=== PATIENT | male | born 1940 | race Caucasian/White ===

== ENCOUNTER → 2019-10-15 | Outpatient (CLI) | payer OTHER, MEDICARE ==
[~2019-10-15] VITALS: Ht 182.9 cm; Wt 122.4 kg
[~2019-10-15] MED LIST: AEC81 PO; DUTA0.5C18 PO; DUTASTERIDE PO; INDO75CA3 PO; LOSA1TAB54 PO; LOSARTAN PO; TAMS-1 PO; VITA1TAB22 PO; WARF5TAB76 PO
[2019-10-15 15:49] VITALS: BP 136/85
[2019-10-15 15:53] LABS: EOSINOPHILS % (AUTO) 1.5 % (0.0-8.0); HEMATOCRIT 32.3 % (42-54); LYMPHOCYTES % (AUTO) 24.3 % (21.0-51.0); MEAN CORPUSCULAR HEMOGLOBIN 35.7 pg (27.0-33.0); MEAN CORPUSCULAR HGB CONC 32.5 g/dL (32.0-36.0); MEAN CORPUSCULAR VOLUME 109.9 fL (79-99); MONOCYTES % (AUTO) 8.4 % (3.0-13.0); NEUTROPHILS % (AUTO) 64.6 % (40.0-77.0); PLATELET COUNT (AUTO) 187 K/uL (130-400); RED BLOOD CELL COUNT(AUTO) 2.94 MIL/uL (4.50-6.20); RED CELL DISTRIBUTION WIDTH 13.6 % (11.0-15.5); WHITE BLOOD COUNT (AUTO) 8.1 K/uL (4.8-10.8)
[2019-10-15 16:05] LABS: CREATININE 1.2 mg/dL (0.5-1.5); POTASSIUM 3.8 mmol/L (3.5-5.1)
[2019-10-15 16:08] LABS: INR 0.99 (0.85-1.15); PARTIAL THROMBOPLASTIN TIME 27.7 SEC (26.3-35.5); PROTHROMBIN TIME 10.4 SEC (9.6-11.6)
--- NOTE | 2019-10-15 16:25 | NUR ---
RE: ABNORMAL EKG INFORMED DR BLACKMAN REGARDING ABNORMAL EKG, PER DR BLACKMAN, PATIENT NEEDS CARDIAC CLEARANCE. WILL SEND/FAX EKG TO DR SAGASTUME.
--- NOTE | 2019-10-15 17:28 | NUR ---
SENT EKG TO DR SAGASTUME. DR SAGASTUME REVIEWED EKG AND PER DR SAGASTUME, HE WILL NOT GIVE CARDIAC CLEARANCE FOR THE SURGERY WITH DR HU. PATIENT NEEDS TO BE SEEN IN DR LAWSON'S OFFICE ON SATURDAY.
--- NOTE | 2019-10-15 17:35 | NUR ---
CALLED PATIENT AND INFORMED HIM THAT SURGERY WAS BEING CANCELED DUE TO ABNORMAL EKG AND THAT DR SAGASTUME WANTS TO SEE HIM IN THE OFFICE ON SATURDAY. PATIENT VERBALIZED UNDERSTANDING.
== END | disposition home or self-care (01) ==
LOC: DAH 10:00 → EDSTATUS 11:00
PROVIDERS: ATTEND Neurological Surgery
DX: I45.10 Unspecified right bundle-branch block (principal); I25.2 Old myocardial infarction; I48.91 Unspecified atrial fibrillation; R00.0 Tachycardia, unspecified; G95.29 Other cord compression
CPT/HCPCS: 36415; 80048; 85025; 85610; 85730; 93005; A6260

== ENCOUNTER 2019-10-22 05:57 | Day surgery (SDC) | payer OTHER, MEDICARE ==
[2019-10-20 09:04] LABS: APPEARANCE,URINE Clear (CLEAR); BILIRUBIN,URINE Negative (NEGATIVE); COLOR,URINE Yellow (YELLOW); GLUCOSE, URINE (UA) Negative (NEGATIVE); KETONES,URINE Negative (NEGATIVE); LEUKOCYTE ESTERASE ,URINE Negative (NEGATIVE); NITRATE,URINE Negative (NEGATIVE); OCCULT BLOOD,URINE Negative (NEGATIVE); PH,URINE 5.5 (5.0-8.0); PROTEIN,URINE Trace mg/dL (NEGATIVE)
[2019-10-20 09:13] VITALS: BP 130/65
[2019-10-20 09:28] LABS: BACTERIA,URINE Rare /HPF (None Seen); RBC,URINE None Seen /HPF (0-1); SQUAMOUS EPITHELIAL CELL,UR None Seen /HPF (0-2); WBC,URINE 0-1 /HPF (0-1)
[2019-10-22] VITALS (13 sets, daily range): BP systolic 101–166; BP diastolic 66–101
[~2019-10-22] VITALS: Ht 177.8 cm; Wt 122.5 kg
[~2019-10-22 05:57] MED LIST changes: -DUTA0.5C18 PO; -LOSA1TAB54 PO; +SODIUM CHLORIDE 0.9% 500ML 500 ML IV SCH; -VITA1TAB22 PO; +WARF5TAB PO; -WARF5TAB76 PO
[2019-10-22] MEDS ORDERED: VITA1TAB22 PO (06:48)
[2019-10-22] MEDS ORDERED: DUTA0.5C18 PO (06:48)
[2019-10-22] MEDS ORDERED: LOSA1TAB54 PO (06:48)
[2019-10-22] MEDS ORDERED: SODIUM CHLORIDE 0.9% 1000ML 1,000 ML IV ONE (07:01)
[2019-10-22] MEDS ORDERED: IOHEXOL 350 MG/ML 100ML INFUS..BTL IV ONE (07:09)
[2019-10-22] MEDS ORDERED: NITROGLYCERIN 50 MG/D5% WATER 1 BOT ONE (07:09)
[2019-10-22] MEDS ORDERED: IOHEXOL-350 50ML VIAL IV ONE (07:09)
[2019-10-22] MEDS ORDERED: HEPARIN SODIUM 1000UNIT/ML 10ML VIAL ONE (07:09)
[2019-10-22] MEDS ORDERED: LIDOCAINE HCL 2% 20ML ONE (07:09)
[2019-10-22] MEDS ORDERED: DEXTROSE 50%-WATER 50 ML DISP.SYRIN IV PRN (08:15)
[2019-10-22] MEDS ORDERED: GLUCAGON 1MG KIT 1 MG ML IM PRN (08:15)
[2019-10-22 10:00] LABS: BASOPHILS % (AUTO) 1.7 % (0.0-5.0); EOSINOPHILS % (AUTO) 2.1 % (0.0-8.0); HEMATOCRIT 32.2 % (42-54); LYMPHOCYTES % (AUTO) 29.3 % (21.0-51.0); MEAN CORPUSCULAR HEMOGLOBIN 35.6 pg (27.0-33.0); MEAN CORPUSCULAR VOLUME 111.4 fL (79-99); MONOCYTES % (AUTO) 10.3 % (3.0-13.0); NEUTROPHILS % (AUTO) 56.2 % (40.0-77.0); PLATELET COUNT (AUTO) 189 K/uL (130-400); RED BLOOD CELL COUNT(AUTO) 2.89 MIL/uL (4.50-6.20); RED CELL DISTRIBUTION WIDTH 13.7 % (11.0-15.5); WHITE BLOOD COUNT (AUTO) 4.8 K/uL (4.8-10.8)
[2019-10-22] MEDS ORDERED: ACETAMINOPHEN 325 MG TAB ONE (10:08)
[2019-10-22] MEDS ORDERED: ACETAMINOPHEN 325 MG TAB PO SCH (10:30)
== END 2019-10-22 16:15 | disposition home or self-care (01) ==
LOC: DAH 05:57
PROVIDERS: ATTEND Internal Medicine Cardiovascular Disease
DX: I25.10 Atherosclerotic heart disease of native coronary artery without angina pectoris (principal); I77.1 Stricture of artery; I10 Essential (primary) hypertension; I48.91 Unspecified atrial fibrillation; M19.90 Unspecified osteoarthritis, unspecified site; Z79.899 Other long term (current) drug therapy; Z79.01 Long term (current) use of anticoagulants; Z79.82 Long term (current) use of aspirin; Z98.890 Other specified postprocedural states; Z87.891 Personal history of nicotine dependence; Z72.89 Other problems related to lifestyle
CPT/HCPCS: 36415; 71045; 81001; 85025; 93454; A4215; A4216; A4221; A4222; A4223 ×3; A4606; A4663; C1769; C1894; J1644; J3490 ×2; J7030; Q9965; Q9967 ×2

== ENCOUNTER → 2023-10-04 | Outpatient (CLI) | payer MEDICARE ==
[~2023-10-04] MED LIST changes: -AEC81 PO; +DUTA0.5C37 PO; -DUTASTERIDE PO; -INDO75CA3 PO; +LOSA1TAB54 PO; -LOSARTAN PO; -SODIUM CHLORIDE 0.9% 500ML 500 ML IV SCH; +VITA1TAB22 PO
== END | disposition home or self-care (01) ==
LOC: SHCH 09:05
PROVIDERS: ATTEND Internal Medicine Cardiovascular Disease
DX: I08.3 Combined rheumatic disorders of mitral, aortic and tricuspid valves (principal); I11.9 Hypertensive heart disease without heart failure; I25.10 Atherosclerotic heart disease of native coronary artery without angina pectoris
CPT/HCPCS: 93306